=== PATIENT | female | born 1970 | race Caucasian/White ===

== ENCOUNTER 2016-05-04 10:27 | Inpatient (IN) | payer OTHER ==
[2016-05-04 11:38] VITALS: BMI 28.4
[2016-05-04] MEDS ORDERED: guaiFENesin/D-METHORPHAN HB 10 ML UNIT-DOSE CUPS PO PRN (14:20)
[2016-05-04] MEDS ORDERED: LOPERAMIDE HCL 2 MG CAPSULE PO PRN (14:20)
[2016-05-04] MEDS ORDERED: MAGNESIUM CITRATE 300 ML BOTTLE PO PRN (14:20)
[2016-05-04] MEDS ORDERED: MAGNESIUM HYDROX 2400MG/30ML ORAL SUSPENSION 30 ML CUP PO PRN (14:20)
[2016-05-04] MEDS ORDERED: MENTHOL/PHENOL 1 EACH UD MM PRN (14:20)
[2016-05-04] MEDS ORDERED: MAG HYDROX/AL HYDROX/SIMETH 30 ML UNIT-DOSE CUP PO PRN (14:20)
[2016-05-04] MEDS ORDERED: P-EPHED 60MG/TRIPROLIDI 2.5MG TABLET PO PRN (14:20)
[2016-05-04] MEDS ORDERED: diphenhydrAMINE HCL 50 MG CAPSULE PO PRN (14:20)
--- NOTE | 2016-05-04 14:20 | HP ---
[facility] Rehab Assess/Revision - Admission History Admitted to Rehab from: [facility] [place] - Vital signs Vital Signs: Vital Signs Period Temp Pulse Resp BP Sys/Becerril Pulse Ox Last 24 Hr 96.1 F 89 20 105/73 - Findings Detox History & Physical reviewed: Yes Concur with findings: Yes
[2016-05-04] MEDS ORDERED: ALBUTEROL SO4 6.7 GM HFA INHALER IH PRN (14:23)
[2016-05-04] MEDS: ALBUTEROL SO4 2.5/IPRATROPIUM 0.5 INH SOL 3 ML VIAL.NEB. NEB SCH (17:39)
[2016-05-04] MEDS: NICOTINE POLACRILEX 4 MG GUM BUC PRN ×2 (17:48→21:33)
[2016-05-04] MEDS: PATIENT'S OWN MEDICATION (NON-FORMULARY) (Nitrofurantoin Monohyd/M-Cryst [Nitrofurantoin M PO SCH (21:32)
[2016-05-04] MEDS: traZODone HCL 100 MG TABLET (FP) PO SCH (21:33)
[2016-05-04] MEDS: GABAPENTIN 400 MG CAPSULE (FP) PO SCH (21:33)
[2016-05-04] MEDS: THIAMINE HCL 100 MG TABLET (FP) PO SCH (21:33)
[2016-05-04] MEDS: LITHIUM CARBONATE 300 MG CAPSULE (FP) PO SCH (21:39)
[2016-05-04] MEDS ORDERED: PATIENT'S OWN MEDICATION (NON-FORMULARY) (Nitrofurantoin Monohyd/M-Cryst [Nitrofurantoin M PO SCH (22:00)
[2016-05-04 23:10] LABS: MCH 28.1 pg (25.7-33.7); MEAN CELL VOLUME 87.9 fl (80-96); MEAN PLT VOLUME 9.2 fl (7.5-11.1); PLATELET COUNT 269 K/MM3 (134-434); RDW 14.1 % (11.6-15.6); URINE APPEARANCE CLEAR; URINE BILIRUBIN NEGATIVE (NEGATIVE); URINE COLOR YELLOW; URINE GLUCOSE (UA) NEGATIVE (NEGATIVE); URINE KETONE TRACE (NEGATIVE); URINE NITRITE NEGATIVE (NEGATIVE); URINE PROTEIN NEGATIVE (NEGATIVE); URINE UROBILINOGEN NEGATIVE E.U./dl (0.2-1.0); WHITE BLOOD COUNT 7.4 K/mm3 (4.0-10.0)
[2016-05-04 23:14] LABS: URINE BLOOD 1+ (NEGATIVE); URINE LEUK ESTERASE TRACE (NEGATIVE)
[2016-05-04 23:21] LABS: URINE BACTERIA RARE /hpf (NONE SEEN); URINE RBC <1 /hpf (0-3); URINE WBC <1 /hpf (3-5)
[2016-05-04 23:28] LABS: ALBUMIN 3.7 g/dl (3.4-5.0); ANION GAP 6 (8-16); CALCIUM 8.7 mg/dL (8.5-10.1); CO2 26 mmol/L (21-32); GLUCOSE,RANDOM 98 mg/dL (74-106)
[2016-05-04 23:31] LABS: ALK PHOS 71 U/L (45-117); BILIRUBIN,TOTAL 0.3 mg/dL (0.2-1.0); CREATININE 0.7 mg/dL (0.55-1.02); SGOT/AST 17 U/L (15-37); SGPT/ALT 22 U/L (12-78); TOT PROT 7.1 g/dl (6.4-8.2)
[2016-05-05] MEDS: ALBUTEROL SO4 2.5/IPRATROPIUM 0.5 INH SOL 3 ML VIAL.NEB. NEB SCH ×5 (00:05→21:40)
[2016-05-05] MEDS: NICOTINE POLACRILEX 4 MG GUM BUC PRN ×6 (06:33→19:22)
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
[2016-05-05] MEDS: IBUPROFEN 400 MG TABLET (FP) PO PRN (08:31)
[2016-05-05] MEDS: PATIENT'S OWN MEDICATION (NON-FORMULARY) (Nitrofurantoin Monohyd/M-Cryst [Nitrofurantoin M PO SCH ×2 (09:47→21:40)
[2016-05-05] MEDS: GABAPENTIN 400 MG CAPSULE (FP) PO SCH ×4 (09:47→21:37)
[2016-05-05] MEDS: PRENATAL VITAMINS W/ FOLIC ACID TABLET (FP) PO SCH (09:47)
[2016-05-05] MEDS: CITALOPRAM HYDROBROMIDE 20 MG TABLET (FP) PO SCH (09:47)
[2016-05-05] MEDS: LITHIUM CARBONATE 300 MG CAPSULE (FP) PO SCH ×2 (09:47→21:37)
[2016-05-05] MEDS: hydrOXYzine PAMOATE 50 MG CAPSULE (FP) PO PRN (09:49)
[2016-05-05] MEDS: ACETAMINOPHEN 325 MG TABLET (FP) PO PRN ×2 (09:50→14:53)
[2016-05-05] MEDS ORDERED: INFLUENZA VACCINE 45 MCG/0.5 ML (MDV 16-17) IM ONE (12:00)
--- NOTE | 2016-05-05 15:05 | PN ---
[facility] Progress Note (SOAP) Subjective: c/o dry cough,on nitrofurantoin for UTI. CX-Ray RML infiltrate Objective: 05/05/16 15:03 Vital Signs - 8 hr 05/05/16 07:18 Temperature 97.8 F Pulse Rate 98 H Respiratory 18 Rate Blood Pressure 98/62 Laboratory Last Values WBC 7.4 K/mm3 (4.0-10.0) 05/04/16 15:00 RBC 4.50 M/mm3 (3.60-5.2) 05/04/16 15:00 Hgb 12.7 GM/dL (10.7-15.3) 05/04/16 15:00 Hct 39.5 % (32.4-45.2) 05/04/16 15:00 MCV 87.9 fl (80-96) 05/04/16 15:00 MCHC 32.0 g/dl (32.0-36.0) 05/04/16 15:00 RDW 14.1 % (11.6-15.6) 05/04/16 15:00 Plt Count 269 K/MM3 (134-434) D 05/04/16 15:00 MPV 9.2 fl (7.5-11.1) D 05/04/16 15:00 Sodium 137 mmol/L (136-145) 05/04/16 15:00 Potassium 3.6 mmol/L (3.5-5.1) 05/04/16 15:00 Chloride 105 mmol/L (98-107) 05/04/16 15:00 Carbon Dioxide 26 mmol/L (21-32) 05/04/16 15:00 Anion Gap 6 (8-16) L 05/04/16 15:00 BUN 9 mg/dL (7-18) D 05/04/16 15:00 Creatinine 0.7 mg/dL (0.55-1.02) 05/04/16 15:00 Creat Clearance w eGFR > 60 (>60) 05/04/16 15:00 Random Glucose 98 mg/dL (74-106) 05/04/16 15:00 Calcium 8.7 mg/dL (8.5-10.1) 05/04/16 15:00 Total Bilirubin 0.3 mg/dL (0.2-1.0) D 05/04/16 15:00 AST 17 U/L (15-37) D 05/04/16 15:00 ALT 22 U/L (12-78) D 05/04/16 15:00 Alkaline Phosphatase 71 U/L (45-117) 05/04/16 15:00 Total Protein 7.1 g/dl (6.4-8.2) 05/04/16 15:00 Albumin 3.7 g/dl (3.4-5.0) 05/04/16 15:00 Urine Color Yellow 05/04/16 15:00 Urine Appearance Clear 05/04/16 15:00 Urine pH 7.0 (5.0-8.0) 05/04/16 15:00 Ur Specific [place] 1.005 (1.001-1.035) 05/04/16 15:00 Urine Protein Negative (NEGATIVE) 05/04/16 15:00 Urine Glucose (UA) Negative (NEGATIVE) 05/04/16 15:00 Urine Ketones Trace (NEGATIVE) H 05/04/16 15:00 Urine Blood 1+ (NEGATIVE) H 05/04/16 15:00 Urine Nitrite Negative (NEGATIVE) 05/04/16 15:00 Urine Bilirubin Negative (NEGATIVE) 05/04/16 15:00 Urine Urobilinogen Negative E.U./dl (0.2-1.0) 05/04/16 15:00 Ur Leukocyte Esterase Trace (NEGATIVE) H D 05/04/16 15:00 Urine RBC <1 /hpf (0-3) 05/04/16 15:00 Urine WBC <1 /hpf (3-5) 05/04/16 15:00 Ur Epithelial Cells Rare /hpf (FEW) 05/04/16 15:00 Urine Bacteria Rare /hpf (NONE SEEN) 05/04/16 15:00 RPR Titer Nonreactive (NONREACTIVE) 05/04/16 15:00 labs noted Assessment: 05/05/16 15:04 R/O RML pnuemonia Plan: zithromax/levaquin
[2016-05-05] MEDS: LEVOFLOXACIN 500 MG TABLET (FP) PO SCH (15:37)
[2016-05-05] MEDS: AZITHROMYCIN 250 MG TABLET (FP) PO SCH (15:37)
[2016-05-05] MEDS: THIAMINE HCL 100 MG TABLET (FP) PO SCH (21:37)
[2016-05-05] MEDS: traZODone HCL 100 MG TABLET (FP) PO SCH (21:38)
[2016-05-06] MEDS: LEVOFLOXACIN 500 MG TABLET (FP) PO SCH (06:30)
[2016-05-06] MEDS: IBUPROFEN 400 MG TABLET (FP) PO PRN (06:31)
[2016-05-06] MEDS: NICOTINE POLACRILEX 4 MG GUM BUC PRN ×7 (06:31→21:38)
[2016-05-06] MEDS: LITHIUM CARBONATE 300 MG CAPSULE (FP) PO SCH ×2 (09:25→21:35)
[2016-05-06] MEDS: ALBUTEROL SO4 2.5/IPRATROPIUM 0.5 INH SOL 3 ML VIAL.NEB. NEB SCH ×4 (09:25→21:36)
[2016-05-06] MEDS: CITALOPRAM HYDROBROMIDE 20 MG TABLET (FP) PO SCH (09:25)
[2016-05-06] MEDS: PATIENT'S OWN MEDICATION (NON-FORMULARY) (Nitrofurantoin Monohyd/M-Cryst [Nitrofurantoin M PO SCH ×2 (09:26→21:35)
[2016-05-06] MEDS: PRENATAL VITAMINS W/ FOLIC ACID TABLET (FP) PO SCH (09:26)
[2016-05-06] MEDS: GABAPENTIN 400 MG CAPSULE (FP) PO SCH ×4 (09:26→21:36)
[2016-05-06] MEDS: AZITHROMYCIN 250 MG TABLET (FP) PO SCH (09:28)
[2016-05-06] MEDS: traZODone HCL 100 MG TABLET (FP) PO SCH (21:36)
[2016-05-06] MEDS: THIAMINE HCL 100 MG TABLET (FP) PO SCH (21:36)
[2016-05-06] MEDS: hydrOXYzine PAMOATE 50 MG CAPSULE (FP) PO PRN (21:36)
[2016-05-07] MEDS: NICOTINE POLACRILEX 4 MG GUM BUC PRN ×7 (06:39→20:29)
[2016-05-07] MEDS: LEVOFLOXACIN 500 MG TABLET (FP) PO SCH (06:39)
[2016-05-07] MEDS: IBUPROFEN 400 MG TABLET (FP) PO PRN (07:38)
[2016-05-07] MEDS: hydrOXYzine PAMOATE 50 MG CAPSULE (FP) PO PRN ×2 (07:38→17:50)
[2016-05-07 08:10] LABS: LITHIUM 0.5 mmol/L (0.6-1.4)
[2016-05-07] MEDS: CITALOPRAM HYDROBROMIDE 20 MG TABLET (FP) PO SCH (09:28)
[2016-05-07] MEDS: LITHIUM CARBONATE 300 MG CAPSULE (FP) PO SCH ×2 (09:29→21:37)
[2016-05-07] MEDS: PATIENT'S OWN MEDICATION (NON-FORMULARY) (Nitrofurantoin Monohyd/M-Cryst [Nitrofurantoin M PO SCH ×2 (09:30→21:37)
[2016-05-07] MEDS: PRENATAL VITAMINS W/ FOLIC ACID TABLET (FP) PO SCH (09:30)
[2016-05-07] MEDS: GABAPENTIN 400 MG CAPSULE (FP) PO SCH ×4 (09:30→21:37)
[2016-05-07] MEDS: AZITHROMYCIN 250 MG TABLET (FP) PO SCH (09:31)
[2016-05-07] MEDS: ALBUTEROL SO4 2.5/IPRATROPIUM 0.5 INH SOL 3 ML VIAL.NEB. NEB PRN ×2 (15:26→21:36)
[2016-05-07] MEDS: traZODone HCL 100 MG TABLET (FP) PO SCH (21:37)
[2016-05-07] MEDS: THIAMINE HCL 100 MG TABLET (FP) PO SCH (21:37)
[2016-05-08] MEDS: NICOTINE POLACRILEX 4 MG GUM BUC PRN ×7 (06:28→21:58)
[2016-05-08] MEDS: LEVOFLOXACIN 500 MG TABLET (FP) PO SCH (06:28)
[2016-05-08] MEDS: ALBUTEROL SO4 2.5/IPRATROPIUM 0.5 INH SOL 3 ML VIAL.NEB. NEB PRN (08:29)
[2016-05-08] MEDS: LITHIUM CARBONATE 300 MG CAPSULE (FP) PO SCH ×2 (09:12→21:57)
[2016-05-08] MEDS: PRENATAL VITAMINS W/ FOLIC ACID TABLET (FP) PO SCH (09:12)
[2016-05-08] MEDS: CITALOPRAM HYDROBROMIDE 20 MG TABLET (FP) PO SCH (09:12)
[2016-05-08] MEDS: GABAPENTIN 400 MG CAPSULE (FP) PO SCH ×4 (09:12→21:57)
[2016-05-08] MEDS: IBUPROFEN 400 MG TABLET (FP) PO PRN ×2 (09:13→17:14)
[2016-05-08] MEDS: PATIENT'S OWN MEDICATION (NON-FORMULARY) (Nitrofurantoin Monohyd/M-Cryst [Nitrofurantoin M PO SCH (10:39)
[2016-05-08] MEDS: AZITHROMYCIN 250 MG TABLET (FP) PO SCH (10:39)
[2016-05-08] MEDS: THIAMINE HCL 100 MG TABLET (FP) PO SCH (21:56)
[2016-05-08] MEDS: traZODone HCL 100 MG TABLET (FP) PO SCH (21:57)
[2016-05-09] MEDS: NICOTINE POLACRILEX 4 MG GUM BUC PRN ×4 (05:09→11:15)
[2016-05-09] MEDS: ALBUTEROL SO4 2.5/IPRATROPIUM 0.5 INH SOL 3 ML VIAL.NEB. NEB PRN (06:11)
[2016-05-09] MEDS: LEVOFLOXACIN 500 MG TABLET (FP) PO SCH (06:11)
[2016-05-09 07:19] VITALS: BP 100/70; PULSE 85; TEMP 97.4
--- NOTE | 2016-05-09 10:15 | PN ---
[id number] will continue to address her issues on outpatient basis and will continue current medications.Scripts for 30 days provided.Appropriate referral has been provided.
[2016-05-09] MEDS: CITALOPRAM HYDROBROMIDE 20 MG TABLET (FP) PO SCH (10:59)
[2016-05-09] MEDS: GABAPENTIN 400 MG CAPSULE (FP) PO SCH (11:00)
[2016-05-09] MEDS: AZITHROMYCIN 250 MG TABLET (FP) PO SCH (11:00)
[2016-05-09] MEDS: LITHIUM CARBONATE 300 MG CAPSULE (FP) PO SCH (11:00)
[2016-05-09] MEDS: PRENATAL VITAMINS W/ FOLIC ACID TABLET (FP) PO SCH (11:00)
== END 2016-05-09 12:12 | disposition left against medical advice (07) | DRG 894 ==
LOC: YASAS 10:27 → Y3E 13:29
PROVIDERS: ADMIT Psychiatry & Neurology Psychiatry; ATTEND Psychiatry & Neurology Psychiatry
PROC: HZ42ZZZ Group Counseling for Substance Abuse Treatment, Cognitive-Behavioral (ICD-10-PCS; principal; 2016-05-04)
DX: F10.20 Alcohol dependence, uncomplicated (principal); J18.9 Pneumonia, unspecified organism; F14.20 Cocaine dependence, uncomplicated; F31.89 Other bipolar disorder; F12.20 Cannabis dependence, uncomplicated; F17.210 Nicotine dependence, cigarettes, uncomplicated; J20.9 Acute bronchitis, unspecified; B37.3 Candidiasis of vulva and vagina; B18.2 Chronic viral hepatitis C
CPT/HCPCS: 36415; 71020-TC; 80053; 80178; 81003; 81015; 84443; 85027; 86593; 93005; 93010; 94640